=== PATIENT | male | born 1960 | race Caucasian/White ===

== ENCOUNTER → 2021-03-15 | Day surgery (SDC) | payer OTHER ==
[~2021-03-15] MED LIST: GAS-X125 M1 PO; MIRALAX119 GM PO; SUPER THERAVIT1 EACH PO
--- NOTE | ~2021-03-15 | PROC ---
[facility] [address] [place] [address] PROCEDURE REPORT Name: JW QURESHI Room: [facility]#: [id number] Admission: 03/15/21 Attend Phys: Bimal Yao DO Discharge: Date of : 60 Report #: [id number] THIS REPORT FOR: cc: NAOMI CURRY Physician not on staff [facility],Medical Records Staff ~ For GI report, please see the Provation report in Perceptive 7 content. By: 1458Medical Records Staff NATALIA /TEREZA
[2021-03-15 09:32] LABS: HEMATOCRIT 40.7 % (42.0-52.0); HEMOGLOBIN 14.3 gm/dL (14.0-18.0); MCV 91.3 fL (80.0-100.0); MPV 7.5 fl. (7.2-11.1); RBC 4.46 mil/uL (4.50-6.00); RDW-CV 12.7 % (10.5-14.5); WBC 7.9 thou/uL (4.0-11.0)
[2021-03-15 09:46] LABS: CALCIUM 8.7 mg/dL (8.5-10.1); CREATININE 0.8 mg/dL (0.6-1.3); POTASSIUM 3.8 mmol/L (3.5-5.1)
--- NOTE | 2021-03-15 14:38 | EKG ---
[place] [address] ELECTROCARDIOGRAM REPORT Name: JW QURESHI Room: [facility]#: [id number] Admission: 03/15/21 Attend Phys: Bimal Yao, Discharge: Date of : 60 Date of Service: 03/15/2130 Report #: [id number] THIS REPORT FOR: //name// [facility] Test Date: 2021-03-15 Test Time: 09:30:42 Pat Name: JW QURESHI Department: Room: Gender: Director Of Curriculum: TDS : 1960 Requested By: Bimal Yao Order Number: [id number] Kourtney MD: Rigo Ruiz Measurements Intervals [place] Rate: 66 P: 71 PA: 170 QRS: 57 QRSD: 100 T: 66 QT: 399 QTc: 418 Interpretive Statements Sinus rhythm Anteroseptal infarct, old, possible ST elevation, consider inferior injury No previous ECG available for comparison Electronically Signed On 03-15-2021 14:38:24 CDT by Rigo Ruiz [email or web address] <ELECTRONICALLY SIGNED> By: Rigo Ruiz MD, FACC 03/15/21 1438 Rigo Ruiz MD, [facility] /EPI
--- NOTE | 2021-03-17 15:16 | PATH ---
[address] [address] PATHOLOGY RPT PROCEDURE Name: JW QURESHI Room: [facility]#: [id number] Admission: 03/15/21 Date of : 60 Discharge: Report #: [id number] Path Case #: [id number] [facility] Accession Number: [id number] . 01 Material submitted: . PART A: ANTRUM - ANTRAL BIOPSY FOR H. PYLORI PART B: colon - DISTAL TRANSVERSE COLON POLYP. Modifiers: distal, transverse . 01 Clinical history: . CHANGE IN BOWEL, ELEVATED CA19-9, WEIGHT LOSS, ABNORMAL FINDING GI B. HOT SNARE . 02 Diagnosis: A. Antral biopsy: - Mild nonspecific chronic antral gastritis, negative for Helicobacter pylori organisms and dysplasia. . B. Distal transverse colon polyp (hot snare): - Tubular adenoma, negative for high-grade dysplasia. (NOVA:george; 03/17/2021) . Special stain on A: H. pylori immuno QMS 03/17/2021 1054 Local . 02 Electronically signed: . Shekhar Wilburn MD, Pathologist NPI- [id number] . 01 Gross description: . A. The specimen is received in formalin, labeled "Jw Quershi, antral biopsy". Received is a segment of pale rubin tissue measuring 0.6 cm in maximum dimensions. The specimen is submitted entirely in cassette A1. . B. The specimen is received in formalin, labeled "Jw Qureshi, distal transverse colon polyp". Received is a segment of pale rubin tissue with scant amount of vegetable matter measuring 0.3 cm in maximum dimensions. The specimen is submitted entirely in cassette B1.([facility]; 03/16/2021) [facility] 03/16/2021 [facility] Local . 02 Pathologist provided ICD-10: K29.50, D12.3 . 02 CPT . 785923, 615231, K33837 Specimen Comment: A courtesy copy of this report has been sent to [phone] Specimen Comment: [place] [address] PATHOLOGY RPT PROCEDURE Name: JW QURESHI Room: [facility]#: [id number] Admission: 03/15/21 Date of : 60 Discharge: Report #: [id number] Path Case #: [id number] Performed at: 01 [facility] [address], [place], [place] [id number] MD Russ Jewell MD Phone: [phone] Performed at: [address] [facility] [address], [place], [place] [id number] MD Shekhar Wilburn MD Phone: [phone]
== END | disposition home or self-care (01) ==
LOC: M.SUR 09:06
PROVIDERS: ATTEND Internal Medicine Gastroenterology
DX: R63.4 Abnormal weight loss (principal); D12.3 Benign neoplasm of transverse colon; K57.30 Diverticulosis of large intestine without perforation or abscess without bleeding; K64.4 Residual hemorrhoidal skin tags; K29.50 Unspecified chronic gastritis without bleeding; R10.13 Epigastric pain; K31.89 Other diseases of stomach and duodenum; R93.3 Abnormal findings on diagnostic imaging of other parts of digestive tract; R10.84 Generalized abdominal pain; K26.9 Duodenal ulcer, unspecified as acute or chronic, without hemorrhage or perforation; K59.00 Constipation, unspecified; K21.9 Gastro-esophageal reflux disease without esophagitis; G47.30 Sleep apnea, unspecified; Z98.890 Other specified postprocedural states; Z79.899 Other long term (current) drug therapy; Z86.010 Personal history of colon polyps